=== PATIENT | male | born 1945 | race Caucasian/White ===

== ENCOUNTER 2020-04-15 02:33 | Outpatient (CLI) | payer MEDICARE, SELFPAY ==
[2020-04-15 19:16] LABS: SARS-CoV-2 RNA PCR Negative
== END 2020-04-15 02:34 | disposition home or self-care (01) ==
LOC: ANHCOVIDDT 02:33
PROVIDERS: PCP Family Medicine; Visit Provider Urology
DX: Z01.818 Encounter for other preprocedural examination (principal); Z20.828 Contact with and (suspected) exposure to other viral communicable diseases
CPT/HCPCS: 87635; C9803; U0003

== ENCOUNTER 2020-04-17 00:52 | Day surgery (SDC) | payer MEDICARE, SELFPAY ==
--- NOTE | 2020-04-07 16:53 | P.HP_ITS ---
History of Present Illness History of Present Illness Consent: Risks, benefits, and alternatives have been discussed and questions answered. Patient agrees to proceed with procedure. Chief complaint: left ureteral stone Narrative: George Dominguez is a 74 year old male Who is well known to our practice, having been cared for by both myself and Dr. Fontenot. He has undergone a Urolift in the remote past and also has overactive bladder that has responded to Myrbetriq. recent fall he presented to the emergency department at [facility] where a CT scan of the lumbar spine revealed a 9 mm obstructing left distal ureteral calculus and bilateral nonobstructing renal stones. Review of Systems Cardiovascular: Cardiovascular: Denies chest pain, Denies lightheadedness, Denies palpitations and Denies dyspnea Respiratory: Respiratory: Denies dyspnea Gastrointestinal: Gastrointestinal: Denies diarrhea, Denies nausea and Denies vomiting Genitourinary: Genitourinary: Denies hematuria and Denies dysuria Endocrine: Endocrine: Denies palpitations Meds Home Medications and Allergies Allergies Allergy/AdvReac Type Severity Reaction Status Date / Time No Known Allergies Allergy Unverified 07/07/17 09:13 Exam Const: General: no acute distress Resp: Effort & Inspection: normal respiratory effort GI: Inspection: non-distended GI Palp: No abdominal tenderness and No Guarding due to palpation present (GI) Auscultation: normal bowel sounds Assessment and Plan Assessment and plan (1) Left ureteral stone: Code(s): N20.1 - Calculus of ureter Status: Acute (2) Bilateral renal stones: Code(s): N20.0 - Calculus of kidney Status: Acute Assessment and Plan: * Cystoscopy, left ureteroscopy with laser lithotripsy, stone extraction and possible left ureteral stent placement. Patient is aware of alternative th erapeutic options including ESWL. He is aware of the risk of this including, but not limited to, adverse cardiopulmonary events, failure to completely extract the stone, ureteral perforation and hematuria.
[2020-04-14 11:04] VITALS: BMI 22.1
[2020-04-17] VITALS (7 sets, daily range): BP systolic 121–160; BP diastolic 59–84; PULSE 64–85; RESP 14–16; TEMP 36.1–36.6; O2SAT 100
--- NOTE | ~2020-04-17 | XR_ITS ---
EXAMINATION: XR retrograde pyelo w/stent LT DATE: 04/17/2020 10:32 INDICATION: Left ureteral stone extraction and stent placement TECHNIQUE: Fluoroscopic images from a left internal ureteral stent placement are submitted for review . 37 seconds of fluoroscopy time. FINDINGS: There is a left double-J internal ureteral stent projecting in expected position, with proximal Lillian loop at the level of the renal pelvis and distal loop in the pelvis within the bladder lumen. IMPRESSION: 1. Left internal ureteral stent placement. Please refer to real-time procedural findings for detail s. Reviewed, dictated and finalized at location B. [facility] [employer]NAGER IMPRESSION: 1. Left internal ureteral stent placement. Please refer to real-time procedur al findings for details.
--- NOTE | 2020-04-17 06:47 | WPDHPUPDATE1 ---
History and Physical Update Update Date/Time: 04/17/20 06:47 History and Physical has been reviewed, including an updated exam of the patient. There are NO changes in the patient's condition. Risks, benefits, and alternatives have been discussed and questions answered. Patient agrees to proceed with procedure.
[2020-04-17] MEDS: LACTATED RINGERS 1,000 ML 30 ML IV CONT (08:44)
--- NOTE | 2020-04-17 09:05 | WPDANESEPPF ---
Anes - Initial Pre Proc Eval Procedure: Operation Date: 04/17/20 10:00 Proposed Procedures p Cystoscopy, Left Ureteroscopy, Left Stone Extraction, - Lamine Sykes MD s Holmium Laser Procedure, Possible Left Stent Placement - Lamine Sykes MD Date/Time: 04/17/20 09:05 Surgeon: Lamine Sykes MD Pre Op Diagnosis: left ureteral stone Patient Data Age: 74 Gender: M Height: 5 ft 9 in Weight: 68.04 kg Allergies Allergy/AdvReac Type Severity Reaction Status Date / Time No Known Allergies Allergy Unverified 04/14/20 10:03 Home Medications Medication Instructions Recorded Confirmed Type aspirin 325 mg PO DAILY 04/14/20 04/14/20 History benzonatate 400 mg PO BID 04/14/20 04/14/20 History carbidopa-levodopa 0.5 tablet PO HS 04/14/20 04/14/20 History carbidopa-levodopa 1 tablet PO BID 04/14/20 04/14/20 History carbidopa-levodopa 1.5 tablet PO QNOON 04/14/20 04/14/20 History cholecalciferol (vitamin D3) 25 mcg PO BID 04/14/20 04/14/20 History levothyroxine 25 mcg PO DAILY 04/14/20 04/14/20 History metoprolol succinate 12.5 mg PO DAILY 04/14/20 04/14/20 History mirabegron [Myrbetriq] 25 mg PO QAM 04/14/20 04/14/20 History omega-3 fatty acids [Fish Oil] 1,000 mg PO BID 04/14/20 04/14/20 History pantoprazole 40 mg PO HS 04/14/20 04/14/20 History quetiapine 25 mg PO HS 04/14/20 04/14/20 History rasagiline 1 mg PO DAILY 04/14/20 04/14/20 History ropinirole 0.25 mg PO HS 04/14/20 04/14/20 History rosuvastatin 20 mg PO HS 04/14/20 04/14/20 History Patient hx anesthesia problems: none Family hx anesthesia problems: none PMFSH Past Medical History Medical History (Updated 04/17/20 @ 09:06 by George Clarke MD) CAD (coronary artery disease) HTN (hypertension) Hyperlipidemia Parkinson disease Surgical History Surgical History (Updated 04/17/20 @ 09:05 by George Clarke MD) History of coronary artery stent placement Social History Social History Smoking packs per day: 0.5 Smoking cigarettes per day: 10.0 Years smoked: 8 Smoking pack-years: 4.00 Smoking status: Former smoker Tobacco type: cigarettes Smoking end date: 05/16/67 Living arrangements: with family Spiritual care concerns: No Anes - Eval Final PreProcedure Day of Procedure 04/17/20 09:05 Patient weight: normal Heart: regular rate and rhythm Lungs: clear to auscultation Airway: Mallampati scale class II Neurological: alert and oriented Last oral intake: >/= 8 hours ASA classification: III Emergent: no Anesthetic plan: proceed Anesthesia type and monitoring: standard monitoring Informed Consent: The patient's anesthetic plan and its attendant risks and benefits were discussed with the patient/family/POA. Questions were solicited and answers provided to the satisfaction of the patient/family/POA.
--- NOTE | 2020-04-17 10:25 | PM.PROC ---
Procedure Note - Detailed Date of procedure: 04/17/20 Pre-op diagnosis: left ureteral stone Post-op diagnosis: same Procedure performed: 1. Cystoscopy, left ureteroscopy with laser lithotripsy and stone extraction 2. Left retrograde pyelogram 3. Left ureteral stent placement Description of procedure: The patient was brought to the operative suite where he is prepped and draped in a routine sterile fashion while in the dorsal lithotomy position after the uneventful induction of a general LMA anesthetic. A 19F rigid cystoscope was placed in the bladder. There are no urethral strictures. His prostatic urethra measures, approximately, 2.0 cm with small median lobe enlargement. The bladder mucosa was endoscopically normal without hyperemia or neoplasm. There was a single, orthotopic ureteral orifice bilaterally. A 0.035 glidewire was advanced into the left renal pelvis under fluoroscopy. The distal ureter was dilated with an 8F/10F ureteral dilator. Ureteroscopy was undertaken with a short tapered semi-rigid ureteroscope ureteroscope. During ureteroscopy I fractured the stone into smaller pieces using a 273 micron Holmium laser fiber with the Holmium laser. I was able to then extract the stone pieces using a 1.9F Escape, Nitinol, disposable stone basket. Due to the extent of this manipulation I did place a 4.8F double-J ureteral stent. The proximal coil of the stent was confirmed to be in the renal pelvis and the distal coil in the bladder. The patient's bladder was emptied and he was taken to the recovery room having tolerated this procedure well. Anesthesia: GLMA Surgeon: Lamine Sykes MD Estimated blood loss (mL): 0 Drains: Yes (4.8F left ureteral stent) Packing: No Pathology: yes Complications: No immediate complications Condition: stable Disposition: PACU
--- NOTE | 2020-04-17 11:08 | SUR.PHASEI ---
PT AROUSES TO NAME. DENIES PAIN OR NAUSEA. GLASSES PLACED ON PT
[2020-04-17] MEDS: oxyCODONE HCL (*CRX) 5 MG TAB IR PO (11:42)
== END 2020-04-17 12:19 | disposition home or self-care (01) ==
PROVIDERS: PCP Family Medicine; Visit Provider Urology
PROC: (CPT 52352; principal; 2020-04-17 10:00)
PROC: (CPT 52356; 2020-04-17 10:00)
DX: N20.1 Calculus of ureter (principal); I10 Essential (primary) hypertension; I25.10 Atherosclerotic heart disease of native coronary artery without angina pectoris; E78.5 Hyperlipidemia, unspecified; G20 Parkinson's disease; Z87.891 Personal history of nicotine dependence
CPT/HCPCS: 52356; 74420; 82365; 88300; A9270; C1769; C1887; C2617; J2704; J3010; J7120; Q9966